=== PATIENT | male | born 1955 ===

== ENCOUNTER 2017-04-25 07:51 | Emergency (ER) | payer BC ==
[2017-04-25 09:25] LABS: BASO % 0.3 % (0.0-2.0); EOS # 0.2 K/uL (0.0-0.7); EOS % 1.9 % (0.0-4.0); HEMOGLOBIN 14.1 g/dL (12.0-18.0); LYMPH # 1.8 K/uL (1.0-4.3); LYMPH % 14.4 % (20.0-40.0); MEAN CELL VOLUME 88.5 fl (80.0-94.0); MEAN CORPUSCULAR HEMOGLOBIN 29.5 pg (27.0-31.0); MEAN CORPUSCULAR HGB CONC 33.3 g/dL (33.0-37.0); MEAN PLATELET VOLUME 9.1 fl (7.2-11.7); MONO # 1.2 K/uL (0.0-0.8); NEUT # 9.1 K/uL (1.8-7.0); NEUT % 73.4 % (50.0-75.0); RBC 4.78 Mil/uL (4.40-5.90); RED CELL DISTRIBUTION WIDTH 13.5 % (11.5-14.5); WHITE BLOOD COUNT 12.4 K/uL (4.8-10.8)
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
[2017-04-25 09:35] LABS: ALB/GLOB RATIO 1.5 (1.0-2.1); ALBUMIN 4.3 g/dL (3.5-5.0); ALT/SGPT 52 U/L (21-72); AST/SGOT 24 U/L (17-59); BLOOD UREA NITROGEN 15 mg/dl (9-20); CALCIUM 9.5 mg/dL (8.4-10.2); GFR AFRICAN-AMERICAN > 60; GFR NON-AFRICAN AMERICAN > 60; LIPASE 170 U/L (23-300)
[2017-04-25 09:41] LABS: INR 1.1 (0.9-1.2); PARTIAL THROMBOPLASTIN TIME 27.3 Seconds (25.6-37.1); PROTHROMBIN TIME 11.5 Seconds (9.8-13.1)
[2017-04-25 09:43] LABS: B-TYPE NATRIURETIC PEPTIDE 136 pg/ml (0-900)
[2017-04-25 10:06] LABS: BARBITURATES, UR NEGATIVE (NEGATIVE); BENZODIAZEPINES, UR NEGATIVE (NEGATIVE); OPIATES, UR NEGATIVE (NEGATIVE); PHENCYCLIDINE, UR NEGATIVE (NEGATIVE)
[2017-04-25] MEDS ORDERED: Sodium Chloride 0.9% 500 ML IV ONE (10:20)
[2017-04-25] MEDS ORDERED: Iohexol 300 100 ML IJ ONE (11:18)
[2017-04-25] MEDS ORDERED: Sodium Chloride 0.9% 50 ML IV ONE (11:18)
[2017-04-25] MEDS ORDERED: Iodixanol 320 MG/ML 100 ML BOTTLE IV ONE (11:43)
--- NOTE | 2017-04-25 11:56 | RAD ---
HISTORY: cp COMPARISON: Images from chest x-ray performed 06/10/11 TECHNIQUE: Chest, one view. FINDINGS: LUNGS: And No focal consolidation. Please note that chest x-ray has limited sensitivity for the detection of pulmonary masses. PLEURA: No significant pleural effusion identified. No definite pneumothorax . CARDIOVASCULAR: Heart size appears within normal limits. OSSEOUS STRUCTURES: Degenerative changes of the spine. VISUALIZED UPPER ABDOMEN: Unremarkable. OTHER FINDINGS: None. IMPRESSION: No focal consolidation, significant pleural effusion, or definite pneumothorax identified.
--- NOTE | 2017-04-25 14:07 | CT ---
PROCEDURE: CT Chest with contrast (Pulmonary Angiogram) HISTORY: cp r/o pe COMPARISON: None available. TECHNIQUE: Axial computed tomography images were obtained of the chest in the pulmonary arterial phase of enhancement. Coronal and sagittal reformatted images were created and reviewed. Intravenous contrast dose: 95 mL of Visipaque Radiation dose: Total exam DLP = 414.75 mGy-cm. This CT exam was performed using one or more of the following dose reduction techniques: Automated exposure control, adjustment of the mA and/or kV according to patient size, and/or use of iterative reconstruction technique. FINDINGS: PULMONARY ARTERIES: Unremarkable. No pulmonary embolism. AORTA: No acute findings. No thoracic aortic aneurysm. LUNGS: There are small patchy nonspecific ground-glass opacities in the lungs. No definite CT evidence of pneumonia PLEURAL SPACES: Unremarkable. No effusion or pneuomothorax. HEART: Heart is slightly enlarged. No evidence of Rico diffusion LYMPH NODES: No lymphadenopathy. BONES, CHEST WALL: Unremarkable. No fracture or destructive lesion OTHER FINDINGS: The liver is mildly enlarged demonstrates diffuse low attenuation suggestive of hepatic steatosis. IMPRESSION: No evidence of pulmonary embolus. Nonspecific ground-glass opacities in the lungs may be related to mild pulmonary congestion. No CT evidence of pneumonia. The heart is slightly enlarged.
[2017-04-25 14:41] VITALS: BP 130/90; RESP 18
[2017-04-25 14:43] LABS: URINE CLARITY CLOUDY (Clear); URINE COLOR YELLOW (YELLOW)
[2017-04-25 14:44] LABS: URINE BILIRUBIN NEGATIVE (NEGATIVE)
[2017-04-25 14:45] LABS: PH,URINE 5.5 (5.0-8.0); URINE BLOOD NEGATIVE (NEGATIVE); URINE LEUKOCYTE ESTERASE SMALL Leu/uL (Negative); URINE NITRATE POSITIVE (NEGATIVE); URINE PROTEIN TRACE mg/dL (NEGATIVE); URINE UROBILINOGEN 0.2 mg/dL (0.2-1.0)
[2017-04-25 14:46] LABS: SQUAMOUS EPITHIAL 15 /hpf (0-5); URINE BACTERIA OCC (<OCC)
[2017-04-25 15:54] VITALS: PULSE 100; O2SAT 95
--- NOTE | 2017-04-25 16:36 | CARD ---
APPROVED REPORT EKG Measurement Heart [id number] [id number] <Conclusion> Normal sinus rhythm Normal ECG
== END 2017-04-25 15:44 | disposition left against medical advice (07) ==
LOC: H.ER 07:51 → UNDOADMOB 15:07 → H.ERHOLD 15:07
DX: R07.9 Chest pain, unspecified (principal); E11.9 Type 2 diabetes mellitus without complications; I10 Essential (primary) hypertension; E78.00 Pure hypercholesterolemia, unspecified
CPT/HCPCS: 71010; 71275; 80053; 81003; 82948; 83690; 83735; 83880; 84484; 85025; 85378; 85610; 85730; 93005; 99285; G0480; Q9967

== ENCOUNTER 2018-08-10 10:31 | Emergency (ER) | payer BC, OTHER ==
[2018-08-10 10:45] VITALS: BP 161/88; PULSE 76; RESP 16; TEMP 97.6; O2SAT 98; BMI 29.0
[2018-08-10] MEDS ORDERED: Tdap Vaccine 0.5 ml Vial (10-64 yrs) IM ONE ×2 (11:18→11:31)
[2018-08-10] MEDS ORDERED: Silver Sulfadiazine 1% CREAM (50 gm) TOP STA (11:19)
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
[2018-08-10] MEDS ORDERED: Silver Sulfadiazine 1% CREAM (50 gm) ONE (11:31)
== END 2018-08-10 11:50 | disposition home or self-care (01) ==
LOC: H.ER 10:31
DX: T22.011A Burn of unspecified degree of right forearm, initial encounter (principal); X11.8XXA Contact with other hot tap-water, initial encounter; Y99.0 Civilian activity done for income or pay